=== PATIENT | male | born 1935 | race Caucasian/White ===

== ENCOUNTER → 2016-11-15 | Outpatient (CLI) | payer MEDICARE | END | disposition home or self-care (01) | LOC: GMAM 17:27 | PROVIDERS: ATTEND Family Medicine | DX: E87.6 Hypokalemia (principal) ==

== ENCOUNTER → 2017-03-24 | Outpatient (CLI) | payer MEDICARE | LOC: GMAM 10:27 | PROVIDERS: ATTEND Family Medicine | DX: Z12.5 Encounter for screening for malignant neoplasm of prostate (principal) ==

== ENCOUNTER → 2017-09-13 | Outpatient (CLI) | payer MEDICARE | END | disposition home or self-care (01) | LOC: GMAM 10:23 | PROVIDERS: ATTEND Family Medicine | DX: E11.65 Type 2 diabetes mellitus with hyperglycemia (principal); R97.20 Elevated prostate specific antigen [PSA]; I10 Essential (primary) hypertension ==

== ENCOUNTER → 2017-09-22 | Outpatient (CLI) | payer MEDICARE ==
--- NOTE | 2017-09-22 11:42 | CT ---
EXAM DESCRIPTION: Abdomen/Pelvis w/o Contrast: Computed tomography CLINICAL HISTORY: GROSS HEMATURIA COMPARISON: None. TECHNIQUE: Spiral-axial scans at 5.0 mm intervals through the abdomen and pelvis. Coronal and sagittal 2.0mm reconstructions. No IV or oral contrast. Total Exam DLP: 664.66 mGy-cm. This exam was performed according to our departmental CT dose-optimization program which includes automated exposure control, adjustment of the mA and/or kV according to patient size and/or use of iterative reconstruction technique; to reduce radiation dose to as low as reasonably achievable (ALARA). FINDINGS: Kidneys and Ureters: 2 mm radiodense stone in the distal right ureter which is dilated with minimal periureteral edema. Normal caliber of the mid and proximal ureter no radiodense stones in the right kidney or hydronephrosis/perinephric stranding. Also mass effect on the distal right ureter from prostate gland. Minimal mass effect on the left UVJ from the prostate gland. Normal caliber of the left ureter with no radiodense stones. No hydronephrosis/perinephric stranding on the left. Probable vascular calcification in the upper anterior left renal pelvis. Pelvic Organs: Marked enlargement of the prostate gland with calcifications in the central zone and peripheral solid and lobulation in heterogeneous density in the upper gland impressing on the bladder. 6.0 cm craniocaudal and 6.2 x 5.3 cm transverse. Mass effect also on the seminal vesicles. No free fluid in the anterior peritoneal reflection. Lung and pleura bases: 4 mm soft tissue nodule in the right lower lobe subpleural region (series 2, image 13). Coronary artery stents and calcifications. Liver, spleen, stomach, and adrenal glands: Vascular calcifications around these organs which are not enlarged with normal density. No ascites. Pancreas, Gallbladder, Ducts: Multiple layering stones in the gallbladder no definite wall thickening no fatty stranding. Normal caliber of the common bile duct. Calcification in the mid pancreas. Aorta: Marked atherosclerotic wall calcification predominately mid and distally. Calcification also the ostia of the celiac axis, SMA bilateral renal arteries and ARNULFO. Small Bowel: Negative. Terminal Ileum/Cecum: Normal caliber of both. Appendix stump with minimal thickening no surrounding stranding or fascial thickening or fluid. Colon: Distention by fecal material entire length with extensive redundancy of the sigmoid colon to the upper anterior mid abdomen. No definite diverticula. Mesentery: No stranding or fascial thickening. No free intraperitoneal air. Spine and Bony Pelvis: Lumbar levoscoliosis. Diffuse spondylosis thoracic spine and mid to lower lumbar spine. Significant bilateral foraminal narrowing L3-4 and L4-5 also bilateral T10-11. Bilateral hypertrophic changes in the acetabula with subchondral cysts and radiolucencies superior joint space narrowing. Marginal spurs on the humeral femoral heads. Bilateral bone islands in the iliac crests question of bone mineral density loss or sclerotic lesions in the bilateral iliac bones and ischial and bilateral femoral necks and intertrochanteric regions. Abdominal Wall/Back Soft Tissues: Bilateral fatty inguinal hernias left greater than right not containing bowel. Abdominal wall diastases at the umbilicus not containing bowel. IMPRESSION: 1. No renal hydronephrosis or perinephric fluid bilaterally. Dilation of the distal right ureter containing a 2 mm radiodense stone with mass effect on the right UVJ from enlarged prostate gland. Also exhibiting mass effect on the left UVJ and the base of the urinary bladder. No radiodense stones, hydronephrosis or perinephric fluid of the left kidney or distention of the left ureter. 2. No radiodense stones in the bladder. Lobulated thickening of the base of the bladder with mass effect from the prostate gland. Cannot exclude mass at the base of the bladder; urologic consult recommended. Enlarged prostate gland- Also consider serum PSA evaluation. 3. Question of small lytic lesions versus loss of bone mineralization pelvis and upper femurs. Diffuse spondylosis mid and lower lumbar spine and thoracic spine. 4. Marked atherosclerotic changes in the abdominal aorta mid and lower more significant. Calcification of the ostia of the major vessels originating from the aorta. Consider CTA abdomen and lower extremities if patient exhibiting signs of poor vascular supply in the abdomen and PVD. 5. Bilateral fatty inguinal hernias not containing bowel. Umbilical diastases not containing bowel. Abdominal organs not enlarged. 4 mm soft tissue nodule right lung base is subclinical at this time. Electronically signed by: Jeremy Becerra MD 09/22/2017 11:41 AM [employer]
== END | disposition home or self-care (01) ==
LOC: RAD 10:43
PROVIDERS: ATTEND Physician Assistant
DX: R31.0 Gross hematuria (principal)

== ENCOUNTER → 2017-09-27 | Outpatient (CLI) | payer MEDICARE | END | disposition home or self-care (01) | LOC: LAB.O 14:10 | PROVIDERS: ATTEND Urology | DX: R97.20 Elevated prostate specific antigen [PSA] (principal); R31.0 Gross hematuria ==

== ENCOUNTER → 2017-09-28 | Outpatient (CLI) | payer MEDICARE ==
--- NOTE | 2017-09-28 17:02 | CT ---
EXAM DESCRIPTION: Abdomen/Pelvis w/Contrast: Computed Tomography. CLINICAL HISTORY: GROSS HEMATURIA. Bladder mass. COMPARISON: CT scan of abdomen and pelvis without IV or oral contrast 09/22/2017. TECHNIQUE: Spiral-axial scans at 5.0 mm intervals through the abdomen and pelvis, after nonionic IV contrast. No oral contrast. Coronal and sagittal 2.0 mm reconstructions. Delayed scans, liver through the pelvis. Axial-spiral 5mm. No adverse reactions. Total Exam DLP: 1627.9 mGy-cm. This exam was performed according to our departmental dose-optimization program which includes automated exposure control, adjustment of the mA and/or kV according to patient size and/or use of iterative reconstruction technique; to reduce radiation dose to as low as reasonably achievable (ALARA). FINDINGS: Kidneys and Ureters: Normal enhancement with no hydronephrosis or perinephric fluid. No radiodense stones. 8 millimeter round low-density object in the inferior right kidney. Vascular calcification left kidney abutting the lateral left renal artery. No radiodense stones in the ureters bilaterally normal caliber and no periureteral edema. Pelvic Organs: Enlarged prostate gland measuring 6.4 x 5.4 cm in the transverse plane and 6.4 cm craniocaudally. TURP defect is seen in the superior anterior prostate gland extending to the left of midline. Calcification posteriorly and inferiorly in the gland and abutting the TURP defect. Smooth margins of the inferior gland but lobulated superior margin with mass effect on the urinary bladder. Urinary bladder wall thickening. No fluid in the anterior peritoneal reflection and no pelvic masses. Lung bases and pleura: Stable nodule right lower lobe and coronary artery stents/calcifications. Liver, Stomach, Spleen, Adrenal Glands: Stable since the prior study. Pancreas, Gallbladder, Ducts: Cholelithiasis of the gallbladder is stable. Common duct and pancreas unchanged. Mesentery: Negative. Aorta: Diffuse atherosclerotic calcification with distal narrowing and extraluminal calcification and intimal wall thickening unchanged. Small Bowel: Unremarkable. Terminal Ileum/Cecum: Negative. Colon: Stable. Spine and Bony Pelvis: Again noted are bilateral punctate lytic lesions and areas of bone density loss as well as spondylosis in the thoracic and lumbar spine and arthrosis in the bilateral acetabula. Also focal sclerotic lesions in the bilateral iliac wings. Abdominal Wall/Back Soft Tissues: Stable left inguinal hernia not containing bowel. IMPRESSION: 1. Enlarged prostate gland again noted with lobulated mass effect on the urinary bladder base which contrasts with the IV contrast in the urinary bladder. Urinary bladder wall thickened. TURP defect in the gland is displaced to the left of midline. This could indicate an inflammatory or neoplastic process in the right side of the gland. No pelvic masses or fluid. 2. Normal caliber of the distal right ureter not containing a radiodense stone. 3. 8-mm region of low-density in the anterior inferior left kidney, too small to resolve as a cyst. Consider evaluation with renal ultrasound. 4. Remainder of the findings in the abdomen and pelvis are stable since the prior study. Electronically signed by: Jeremy Becerra MD 09/28/2017 5:01 PM [facility]
== END | disposition home or self-care (01) ==
LOC: CT 13:15
PROVIDERS: ATTEND Urology
DX: R31.0 Gross hematuria (principal)

== ENCOUNTER 2017-10-26 13:24 | Emergency (ER) | payer MEDICARE ==
--- NOTE | 2017-10-26 14:25 | RAD ---
EXAM DESCRIPTION: Chest,1 View CLINICAL HISTORY: fall with ant left lower rib pain COMPARISON: None available FINDINGS: Postoperative changes are noted in the mediastinum. The cardiomedial mediastinal silhouette is otherwise unremarkable. There is no airspace consolidation or pleural effusion. Mural symmetric nodules projecting of the lung bases likely represent nipple shadows. There is no pneumothorax or acute fracture. IMPRESSION: Postoperative changes in the mediastinum, but no acute intrathoracic abnormality to explain patient symptoms. Probable nipple shadows projecting over the lung bases. Follow-up chest radiograph with nipple markers or short-term follow-up chest radiograph in 2-3 months is recommended. Electronically signed by: Edward Rivera MD 10/26/2017 2:[address] [facility]
--- NOTE | 2017-10-26 14:30 | RAD ---
EXAM DESCRIPTION: Ribs,Left 2 Views CLINICAL HISTORY: fall with ant left lower rib pain COMPARISON: 26 October 2017 chest x-ray TECHNIQUE: 3 views FINDINGS: No pneumothorax is seen. The patient is poststernotomy. A small bone island is observed in the anterior aspect of the left sixth anterior. No rib fracturing is detected. IMPRESSION: No rib fracturing is detected. Electronically signed by: Kehinde Bagley MD 10/26/2017 2:29 PM [facility]
[2017-10-26] MEDS ORDERED: HYDROcodone 5MG/APAP 325MG 1 EA TAB PO ONE (14:42)
--- NOTE | 2017-10-26 14:43 | ED.PDOC ---
History of Present Illness - General Chief Complaint: General Stated Complaint: Fell at restaurant, hit table with chest Time Seen by Provider: 10/26/17 13:38 Source: patient Exam Limitations: no limitations - History of Present Illness Initial Comments: The patient is a 81-year-old male presenting to the emergency room secondary to having tripped and fallen and hit his left lower rib cage on the edge of a table approximately 1 hour prior to arrival. He does have some pain over the area. There is no crepitus or crepitus. No deformity. There is mild erythema. There is mild tenderness to palpation. It does cause him some discomfort when he takes a deep breath. He is not short of breath. He does have some elevated blood pressure which is consistent with pain. No chest pain otherwise. He does take a blood thinner. No other injury from the fall. Timing/Duration: 1 hour Severity: moderate Improving Factors: immobilization Worsening Factors: movement Associated Symptoms: denies symptoms Allergies/Adverse Reactions: Allergies NO KNOWN ALLERGY Allergy (Verified 10/26/17 13:34) Home Medications: Ambulatory Orders Ltjbrbqrtxkwl-Azmo-Slvljacmhr [Fioricet] 1 ea PO Q8H PRN #21 tab 10/26/17 Apixaban [Eliquis] 5 mg PO BID 10/26/17 Atorvastatin Calcium [Lipitor] 40 mg PO BEDTIME 10/26/17 Clonidine Patch 0.3 0.3 mg TD WKLY 10/26/17 Isosorbide Mononitrate [Isosorbide Mononitrate ER] 30 mg PO DAILY 10/26/17 Lisinopril 40 mg PO DAILY 10/26/17 Metoprolol Tartrate 75 mg PO DAILY 10/26/17 Multiple Vitamins W/ Minerals [Multivitamin Adults] 1 tab PO DAILY 10/26/17 Nifedipine [Nifedipine ER] 60 mg PO BID 10/26/17 Potassium Chloride [Micro-K] 8 meq PO DAILY 10/26/17 hydrALAZINE HCl [(None)] 25 mg PO TID 10/26/17 metFORMIN HCL [Glucophage] 500 mg PO BID 10/26/17 Review of Systems - Review of Systems Constitutional: States: no symptoms reported EENTM: States: no symptoms reported Respiratory: States: no symptoms reported Cardiology: States: chest pain Gastrointestinal/Abdominal: States: no symptoms reported Genitourinary: States: no symptoms reported Musculoskeletal: States: see HPI Skin: States: no symptoms reported Neurological: States: no symptoms reported Endocrine: States: no symptoms reported All other Systems: No Change from Baseline Past Medical History (General) - Patient Medical History Hx Stroke: No Hx Cardiac Disorders: Yes - cardiac stents - Hx OK 2011 Hx Congestive Heart Failure: No Hx Hypertension: Yes Hx Diabetes: Yes Hx MRSA: No Surgical History: coronary bypass surgery, other - Vaccination History Hx Influenza Vaccination: Yes - 2016 Hx Pneumococcal Vaccination: Yes - Social History Hx Tobacco Use: Yes - Quit around 1984 Family Medical History - Family History Father Family History: No Known Living Status: Physical Exam - Physical Exam General Appearance: Alert, No apparent distress Eye Exam: bilateral normal Ears, Nose, Throat: hearing grossly normal, normal ENT inspection, normal pharynx Neck: full range of motion, supple Respiratory: lungs clear, normal breath sounds, no respiratory distress, no accessory muscle use, other - left anterior lower chest wall uncomfortable to palpation. Mild erythema. Cardiovascular/Chest: normal peripheral pulses, regular rate, rhythm, no edema, other - he patient has become more tachycardic when he is hurting more. Peripheral Pulses: radial,right: 2+, radial,left: 2+, dorsalis pedis,right: 2+, dorsalis pedis,left: 2+ Gastrointestinal/Abdominal: non tender, soft Rectal Exam: deferred Back Exam: normal inspection, no CVA tenderness, no vertebral tenderness Extremity: normal range of motion, non-tender, normal inspection, no pedal edema , normal capillary refill Neurologic: religious activities director II-XII nml as tested, alert, normal mood/affect, oriented x 3 Skin Exam: normal color - except as above Comments: Vital Signs - 24 hr 10/26/17 10/26/17 13:31 14:24 Temperature 97.8 F Pulse Rate [ 118 H 103 H Left Superficial Temporal] Respiratory 18 18 Rate Blood Pressure 213/111 194/81 [Left Arm] O2 Sat by Pulse 94 L 95 Oximetry Progress - Progress Progress: 10/26/17 14:43 the patient is a 81-year-old male presenting with blunt trauma to his left anterior chest wall that appears to only be bruising at this point. X-ray shows no evidence of any fracture or pneumothorax or hemothorax. He needs to take big deep breaths to prevent pneumonia formation in the near future. He will be written for Fioricet for pain control as needed. He should follow-up with his primary care doctor early next week for reevaluation. ER warnings were given for any significant worsening. Departure - Departure Clinical Impression: Contusion of rib Qualifiers: Encounter type: initial encounter Laterality: left Qualified Code(s): S20.212A - Contusion of left front wall of thorax, initial encounter Disposition: Discharge to Home or Self Care Condition: Fair Departure Forms: ED Discharge - Pt. Copy, Patient Portal Self Enrollment Instructions: DI for Rib Contusion Diet: regular diet Activity: increase activity as tolerated Referrals: Shun Jones MD [Primary Care Provider] - 1-5 Days Prescriptions: Rqyivdshkuwyc-Upps-Rgikvattim [Fioricet] 1 ea PO Q8H PRN #21 tab PRN Reason: Pain Home Medications: Ambulatory Orders Ezsgiifsjrdvx-Iwrf-Hhcxuxbgsi [Fioricet] 1 ea PO Q8H PRN #21 tab 10/26/17 Apixaban [Eliquis] 5 mg PO BID 10/26/17 Atorvastatin Calcium [Lipitor] 40 mg PO BEDTIME 10/26/17 Clonidine Patch 0.3 0.3 mg TD WKLY 10/26/17 Isosorbide Mononitrate [Isosorbide Mononitrate ER] 30 mg PO DAILY 10/26/17 Lisinopril 40 mg PO DAILY 10/26/17 Metoprolol Tartrate 75 mg PO DAILY 10/26/17 Multiple Vitamins W/ Minerals [Multivitamin Adults] 1 tab PO DAILY 10/26/17 Nifedipine [Nifedipine ER] 60 mg PO BID 10/26/17 Potassium Chloride [Micro-K] 8 meq PO DAILY 10/26/17 hydrALAZINE HCl [(None)] 25 mg PO TID 10/26/17 metFORMIN HCL [Glucophage] 500 mg PO BID 10/26/17 Additional Instructions: the patient is a 81-year-old male presenting with blunt trauma to his left anterior chest wall that appears to only be bruising at this point. X-ray shows no evidence of any fracture or pneumothorax or hemothorax. He needs to take big deep breaths to prevent pneumonia formation in the near future. He will be written for Fioricet for pain control as needed. He should follow-up with his primary care doctor early next week for reevaluation. ER warnings were given for any significant worsening.
[2017-10-26 14:57] VITALS: BP 201/101; TEMP 97; O2SAT 96
== END 2017-10-26 14:55 | disposition home or self-care (01) ==
LOC: ER 13:24
DX: S20.212A Contusion of left front wall of thorax, initial encounter (principal); I25.2 Old myocardial infarction; I10 Essential (primary) hypertension; E11.9 Type 2 diabetes mellitus without complications; Z95.1 Presence of aortocoronary bypass graft; Z98.61 Coronary angioplasty status; Z87.891 Personal history of nicotine dependence; Z79.01 Long term (current) use of anticoagulants; W01.198A Fall on same level from slipping, tripping and stumbling with subsequent striking against other object, initial encounter; Y92.511 Restaurant or cafe as the place of occurrence of the external cause

== ENCOUNTER → 2018-04-13 | Outpatient (CLI) | payer MEDICARE | LOC: GMAM 08:24 | PROVIDERS: ATTEND Family Medicine | DX: E83.52 Hypercalcemia (principal); E29.1 Testicular hypofunction ==

== ENCOUNTER → 2018-04-18 | Outpatient (CLI) | payer MEDICARE ==
--- NOTE | 2018-04-19 12:41 | CT ---
EXAM DESCRIPTION: Chest w/Contrast CLINICAL HISTORY: 82 years, Male, PULMONARY NODULE COMPARISON: CT abdomen and pelvis September 22, 2017, chest x-ray October 26, 2017 TECHNIQUE: Thin-section noncontrast axial CT images are obtained according to our protocol. Reconstructed MPR images are created and reviewed as well. Routine adult dose of nonionic iodinated contrast was administered intravenously. FINDINGS: Lungs: No consolidating pulmonary infiltrate or groundglass infiltrate. No worrisome pulmonary mass or nodule. On the previous study September 28, 2017, tiny nodule is seen in the right lower lobe reported as 4 mm in diameter. This now measures 4 mm unchanged. Another tiny nodule in the superior segment right lower lobe measures 4 mm. This was not included on the previous CT abdomen and pelvis and may be another small granuloma. Continued follow-up is recommended since this is a new discovery. Mediastinum: Lymph nodes are normal in size. Normal vascular contours. Heart size is normal with no pericardial effusion. There is extensive coronary arterial calcification. Coronary artery bypass graft is seen. Grafts are seen. Chest wall/axilla: No mass or adenopathy. Lower neck/supraclavicular: No mass or adenopathy. Upper abdomen: Multiple calcified stones in the gallbladder. Adrenal glands are somewhat prominent in thickness suggesting mild hyperplasia. Otherwise unremarkable upper abdominal viscera. Coronal and sagittal reformatted images confirm the findings. Previous chest x-ray showed nodular densities over the lung bases which were apparently nipple shadows. Neither of the nodules in the right lower lobe seen on the chest CT are identifiable on the chest x-ray. IMPRESSION: Two 4 mm nodules in the right lower lobe. One of these is unchanged since previous CT abdomen September 28, 2017. Follow-up as per recommendations below. 2017 Fleischner Society Recommendations for Multiple Solid Lung Nodules Follow-Up base on size (average of long- and short-axis diameters). Use most suspicious nodule for followup. Nodule Size <6 mm Low-Risk Patient: No routine follow-up Nodule Size <6 mm High-Risk Patient: Optional CT at 12 months This exam was performed according to our departmental dose-optimization program, which includes automated exposure control, adjustment of the mA and/or kV according to patient size and/or use of iterative reconstruction technique. Total DLP equals 493.21 mGycm. Electronically signed by: Pb Deluca MD 04/19/2018 12:40 PM CDT
== END ==
LOC: CT 11:46
PROVIDERS: ATTEND Family Medicine
DX: R91.1 Solitary pulmonary nodule (principal)

== ENCOUNTER → 2018-10-29 | Outpatient (CLI) | payer MEDICARE | LOC: GMAM 10:27 | PROVIDERS: ATTEND Family Medicine | DX: Z12.5 Encounter for screening for malignant neoplasm of prostate (principal) ==

== ENCOUNTER → 2019-05-30 | Outpatient (CLI) | payer MEDICARE | LOC: GMAM 10:22 | PROVIDERS: ATTEND Family Medicine | DX: Z12.5 Encounter for screening for malignant neoplasm of prostate (principal); I10 Essential (primary) hypertension; E11.69 Type 2 diabetes mellitus with other specified complication; E78.2 Mixed hyperlipidemia; E29.1 Testicular hypofunction | CPT/HCPCS: 84403; G0103 ==

== ENCOUNTER 2019-06-07 13:25 | Emergency (ER) | payer MEDICARE ==
[2019-06-07] MEDS ORDERED: ACETAMINOPHEN 325 MG TAB PO ONE (13:55)
--- NOTE | 2019-06-07 14:36 | CT ---
EXAM DESCRIPTION: Head CLINICAL HISTORY: CHI COMPARISON: Head injury TECHNIQUE: Noncontrast head CT was performed with routine protocol. FINDINGS: High density in the right sylvian fissure is consistent with subarachnoid blood of small amount. Similar changes are seen in other sulci in the bilateral frontal regions. Subtle hypodensity at the right frontal kaur-white matter junction may be a small shear injury. Subarachnoid blood on the left in the posterior frontal sulcus. No midline shift. No mass effect. Ventricles and sulci are prominent consistent with age-related cerebral volume loss. Normal orbital contents. Basilar cisterns appear clear. Intact calvarium with no fracture or lytic lesion. Normal aeration of tympanic cavities and mastoid air cells. No fluid levels in the paranasal sinuses. Skull base appears intact. Symmetrical internal auditory canals. Coronal and sagittal reformatted images confirm the findings. I discussed the results over the phone with Dr. Mclaughlin at the [facility] Emergency Department at 2:33 PM on 06/07/2019. IMPRESSION: Small volume subarachnoid hemorrhage. Small right frontal kaur-white matter shear injury. This exam was performed according to our departmental dose-optimization program, which includes automated exposure control, adjustment of the mA and/or kV according to patient size and/or use of iterative reconstruction technique. Total DLP equals 859.97 mGycm. Electronically signed by: Pb Deluca MD 06/07/2019 2:35 PM CDT
--- NOTE | 2019-06-07 14:39 | CT ---
EXAM DESCRIPTION: Cervical Spine CLINICAL HISTORY: fall, head injury COMPARISON: None Available. TECHNIQUE: Cervical CT is performed with thin-section axial imaging. MPRs are created and reviewed as well. FINDINGS: Axial bone window images reveal intact ring of C1. No abnormal widening of the atlantodens interval. No fracture of the vertebral bodies or transverse processes or posterior elements. Lung apices appear clear. No cervical mass or adenopathy. Sagittal reformatted images show normal alignment of vertebral bodies and facets. No jumped facet or facet fracture. Normal craniocervical alignment. No prevertebral soft tissue swelling. No avulsion of the spinous processes. 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 Multilevel facet degenerative spurring. Marked degenerative changes around the dens. Coronal reformatted images show normal atlantooccipital and atlantoaxial alignment. The base of the dens is intact as is the body of C2. Intact lateral masses. IMPRESSION: Negative for fracture or posttraumatic subluxation. Degenerative changes as described. This exam was performed according to our departmental dose-optimization program, which includes automated exposure control, adjustment of the mA and/or kV according to patient size and/or use of iterative reconstruction technique. Total DLP equals 406.41 mGycm. Electronically signed by: Pb Deluca MD 06/07/2019 2:37 PM CDT
--- NOTE | 2019-06-07 14:40 | RAD ---
EXAM DESCRIPTION: Forearm,Right CLINICAL HISTORY: 83 years Male, fall, pain COMPARISON: None. FINDINGS: Frontal and lateral x-ray views of the right forearm show intact radius and ulna. No fracture or dislocation. Small osteophytes of the proximal radius and ulna at the elbow joint. Vascular calcification is present. No dislocation. The distal humeral fat pads are normally positioned. Prominent spurring of the coronoid and olecranon processes of the proximal ulna. Radial head and capitellum are normally aligned on both views. IMPRESSION: Negative for fracture or dislocation. Electronically signed by: Pb Deluca MD 06/07/2019 2:39 PM CDT
--- NOTE | 2019-06-07 14:41 | RAD ---
EXAM DESCRIPTION: Wrist,Right 3 Views CLINICAL HISTORY: 83 years, Male, fall, pain COMPARISON: None FINDINGS: Right wrist 3 x-ray views is negative for fracture or dislocation. Carpal relationships are well-maintained. Distal radius and ulna appear intact. Normal metacarpals. Degenerative narrowing of the radiocarpal joint with degenerative changes at the first carpometacarpal joint. Vascular calcification is present with soft tissue swelling of the ventral wrist and distal forearm. IMPRESSION: Negative for fracture or dislocation. Electronically signed by: Pb Deluca MD 06/07/2019 2:40 PM CDT
[2019-06-07] MEDS ORDERED: LABETALOL INJ 5 MG/ML VIAL IV ONE (14:54)
--- NOTE | 2019-06-07 15:53 | ED.PDOC ---
History of Present Illness - General Chief Complaint: Syncope/Near Syncope Stated Complaint: Pt had a fall and possible near syncopal event Time Seen by Provider: 06/07/19 13:52 Source: patient, family Additional Information: Mister Locke is an 83-year-old male who presents to the ED with chief complaint of syncope. Prior to arrival patient was sitting in his chair and then the next thing he remembers is he is on the floor. He has no idea how he got there. His came into the room and found him and noted that he was not unconscious and was fully lucid upon arrival. Patient denies shortness of breath dizziness nausea vomiting abdominal pain. Patient indicates he does not believe that he hit his head, he has no headache or neck pain. Patient does complain of right wrist pain. Patient has no history of previous similar episodes. Patient indicates that he has a history of atrial fibrillation and is on Eliquis - History of Present Illness Allergies/Adverse Reactions: Allergies NO KNOWN ALLERGY Allergy (Verified 10/26/17 13:34) Home Medications: Ambulatory Orders Pqetsloagyxdr-Htsj-Wmlfefjxic [Fioricet] 1 ea PO Q8H PRN #21 tab 10/26/17 Apixaban [Eliquis] 5 mg PO BID 10/26/17 Atorvastatin Calcium [Lipitor] 40 mg PO BEDTIME 10/26/17 Clonidine Patch 0.3 0.3 mg TD WKLY 10/26/17 Isosorbide Mononitrate [Isosorbide Mononitrate ER] 30 mg PO DAILY 10/26/17 Lisinopril 40 mg PO DAILY 10/26/17 Metoprolol Tartrate 75 mg PO DAILY 10/26/17 Multiple Vitamins W/ Minerals [Multivitamin Adults] 1 tab PO DAILY 10/26/17 Nifedipine [Nifedipine ER] 60 mg PO BID 10/26/17 Potassium Chloride [Micro-K] 8 meq PO DAILY 10/26/17 hydrALAZINE HCl [(None)] 25 mg PO TID 10/26/17 metFORMIN HCL [Glucophage] 500 mg PO BID 10/26/17 Review of Systems - Review of Systems Constitutional: States: no symptoms reported. Denies: chills, fever EENTM: States: no symptoms reported. Denies: blurred vision, double vision Respiratory: States: no symptoms reported. Denies: cough, short of breath Cardiology: States: palpitations. Denies: chest pain Gastrointestinal/Abdominal: States: no symptoms reported. Denies: diarrhea, nausea, vomiting Genitourinary: States: no symptoms reported Musculoskeletal: States: see HPI Skin: States: no symptoms reported Neurological: States: no symptoms reported. Denies: headache, numbness, paresthesia Hematologic/Lymphatic: States: no symptoms reported Past Medical History (General) - Patient Medical History Hx Stroke: No Hx of COPD: No Hx Cardiac Disorders: Yes - Afib Hx Congestive Heart Failure: No Hx Hypertension: Yes Hx Diabetes: Yes Hx Cancer: No Hx MRSA: No Surgical History: coronary bypass surgery, other - Vaccination History Hx Tetanus, Diphtheria Vaccination: Yes Hx Influenza Vaccination: Yes Hx Pneumococcal Vaccination: Yes - Social History Hx Tobacco Use: Yes Hx Alcohol Use: No Hx Substance Use: No Hx Substance Use Treatment: No Hx Depression: No - Female History Patient is a Female of Child Bearing Age (10 -59 yrs old): No Patient : No Physical Exam - Physical Exam General Appearance: Alert, Comfortable, No apparent distress Eyes, Ears, Nose, Throat Exam: PERRL/EOMI, normal ENT inspection, pharynx normal, other - negative face or scalp hematoma or abrasion. Neck: other - trachea is midline. Negative cervical vertebral tenderness to palpation. Cardiovascular/Respiratory: no M/R/G, irregularly irregular Gastrointestinal/Abdominal: normal bowel sounds, non tender, soft, no organomegaly Back Exam: normal inspection, no CVA tenderness, no vertebral tenderness Extremity: normal range of motion, other - mild edema and tenderness to palpation to right wrist. Full range of motion. Mental Status: alert, oriented x 3 school psychology specialist Exam: other - Negative pronator drift. Normal finger to nose bilaterally. 5/5 strength in biceps, triceps, loin puller. Normal sensation to light touch bilaterally. Skin Exam: normal color, warm/dry Progress - Progress Progress: 06/07/19 1355 differential diagnosis includes but is not limited to syncope, cardiac dys rhythmia, ICH, electrolyte disorder 06/07/19 1400 EKG: Atrial fibrillation, rate 109, normal QRS, T wave inversions inferiorly, normal ST segment. Negative STEMI. 06/07/[address] brain shows evidence of small subarachnoid hemorrhage, traumatic. I have discussed with Dr. Ng at [facility] who accepts patient ED to ED transfer. I am discussing with the pharmacist whether we have a specific reversal agent for Eliquis at [facility]. If not will begin infusion of FFP prior to transfer. Patient's x-ray of his wrist is nonacute and shows no fracture. At this time patient is comfortable and stable and is fully mentating with no neurologic deficits. He is medically clear and stable for transfer. 06/07/19 16:16 Have discussed with the pharmacist and blood bank and there is no specific antidote at [facility] for [facility] The only option is FFP. I have discussed this with the receiving [facility] and he indicates that they have specific reversal agents in their formulary and to please transfer patient without FFP and they will address the anticoagulation. - EKG/XRAY/CT CT Ordered: Yes Departure - Departure Clinical Impression: Subarachnoid hemorrhage after traumatic injury without open intracranial wound, with prolonged loss of consciousness and return to pre-existing level of consciousness, Atrial fibrillation Time of Disposition: 15:30 Disposition: Transfer to Hospital Condition: Fair Departure Forms: ED Discharge - Pt. Copy, Patient Portal Self Enrollment Referrals: Shun Jones MD [Primary Care Provider] - 1-2 Weeks Home Medications: Ambulatory Orders Mtokabyjwqlos-Nyzl-Debogvqsnr [Fioricet] 1 ea PO Q8H PRN #21 tab 10/26/17 Apixaban [Eliquis] 5 mg PO BID 10/26/17 Atorvastatin Calcium [Lipitor] 40 mg PO BEDTIME 10/26/17 Clonidine Patch 0.3 0.3 mg TD WKLY 10/26/17 Isosorbide Mononitrate [Isosorbide Mononitrate ER] 30 mg PO DAILY 10/26/17 Lisinopril 40 mg PO DAILY 10/26/17 Metoprolol Tartrate 75 mg PO DAILY 10/26/17 Multiple Vitamins W/ Minerals [Multivitamin Adults] 1 tab PO DAILY 10/26/17 Nifedipine [Nifedipine ER] 60 mg PO BID 10/26/17 Potassium Chloride [Micro-K] 8 meq PO DAILY 10/26/17 hydrALAZINE HCl [(None)] 25 mg PO TID 10/26/17 metFORMIN HCL [Glucophage] 500 mg PO BID 10/26/17 Critical Care Note - Critical Care Note Total Time (mins): 35 Transfer to Outside Facility - Transfer Information Accepting Provider:: Dr. Ng Accepting Facility: [facility]
[2019-06-07 16:01] VITALS: TEMP 97.8
[2019-06-07 16:37] VITALS: BP 171/124; O2SAT 99
== END 2019-06-07 16:35 | disposition short-term general hospital (02) ==
LOC: ER 13:25
DX: S06.6X9A Traumatic subarachnoid hemorrhage with loss of consciousness of unspecified duration, initial encounter (principal); I48.91 Unspecified atrial fibrillation; M25.531 Pain in right wrist; M47.812 Spondylosis without myelopathy or radiculopathy, cervical region; I10 Essential (primary) hypertension; E11.9 Type 2 diabetes mellitus without complications; Z79.01 Long term (current) use of anticoagulants; Z95.1 Presence of aortocoronary bypass graft; Z87.891 Personal history of nicotine dependence; Z79.84 Long term (current) use of oral hypoglycemic drugs; W19.XXXA Unspecified fall, initial encounter; Y92.9 Unspecified place or not applicable

== ENCOUNTER → 2019-06-11 | Outpatient (CLI) | payer MEDICARE ==
--- NOTE | 2019-06-11 16:12 | CT ---
EXAM DESCRIPTION: Chest w/Contrast CLINICAL HISTORY: 83 years Male, PULMONARY NODULE COMPARISON: CT chest 04/18/2018, CT abdomen and pelvis 09/28/2017 TECHNIQUE: CT images through the chest with IV contrast. Multiplanar reformations provided. This exam was performed according to our departmental dose-optimization program, which includes automated exposure control, adjustment of the mA and/or kV according to patient size and/or use of iterative reconstruction technique. CT CHEST FINDINGS: Heart and mediastinum: Enlarged heart. No pericardial effusion. Small hiatal hernia. Mild atherosclerosis. No mediastinal or hilar adenopathy. Thyroid Gland: Normal. Lungs: Passive atelectasis in the medial right lower lobe. Stable 4 mm pulmonary nodules in the right lower lobe. No new pulmonary nodules. Airways: Normal. Pleura: Normal. Musculoskeletal and Soft Tissues: No acute fracture or aggressive appearing osseous lesion. Median sternotomy wires in place and intact. Soft tissues unremarkable. Subphrenic Structures: Multiple tiny layering gallstones. IMPRESSION: 1. No acute abnormality of the chest. 2. Stable 4 mm pulmonary nodules in the right lower lobe. Given greater than twelve-month stability, no further follow-up recommended as below. Multiple Solid lung nodules < 6 mm: Follow up management based on most suspicious nodule. In a low-risk patient, no routine follow-up imaging is recommended. In a high-risk patient, a non-contrast Chest CT at 12 months is optional. If performed and the nodule is stable at 12 months, no further follow-up is recommended. These guidelines do not apply to patients younger than 35 years, immunocompromised patients, and patients with cancer. F/u in patients with significant comorbidities as clinically warranted. For lung cancer screening, adhere to Lung-RADS guidelines. Reference: Radiology. 2017 [place]; 284(1):228-24 3. Cholelithiasis. Electronically signed by: Stanford Samayoa MD 06/11/2019 4:10 PM CDT
== END ==
LOC: CT 09:00
PROVIDERS: ATTEND Family Medicine
DX: R91.1 Solitary pulmonary nodule (principal)